=== PATIENT | female | born 1950 | race Caucasian/White ===

== ENCOUNTER 2017-01-11 10:27 | Emergency (ER) | payer MEDICARE, BC ==
[2017-01-11] MEDS ORDERED: Clopidogrel 75 MG Tab PO ONE (10:57)
[2017-01-11] MEDS ORDERED: Aspirin 81 MG Tab.Chew CHEW ONE (10:57)
[2017-01-11] MEDS ORDERED: Famotidine 20 MG/2 ML SDV IVPUSH ONE (10:57)
[2017-01-11] MEDS ORDERED: Sodium Chloride 0.9% 10 ML Syringe FLUSH PRN (10:57)
--- NOTE | 2017-01-11 10:57 | EDM.PDOC ---
ED HISTORY OF PRESENT ILLNESS - General Chief Complaint: Chest Pain Stated Complaint: chest pain Time Seen by Provider: 01/11/17 10:50 Source of Information: Reports: Patient, Family (), Old records ([facility] chart/EMR) History Limitations: Reports: No limitations - History of Present Illness INITIAL COMMENTS - FREE TEXT/NARRATIVE: Patient was brought to the emergency room via private automobile by her for evaluation of nonspecific left-sided chest pressure and dullness, which has occurred on an intermittent basis the last 2 weeks. She rates her discomfort at 3/10 with some radiation into the left shoulder. Her symptoms usually last for about 5-10 minutes. The patient denies any dizziness, orthostasis, orthopnea , diaphoresis, paresthesias, recent decreased exercise tolerance, or any other anginal-type symptoms, although she may have had a brief episode of mild tachycardia about one week ago while she was sitting in the chair. She was not evaluated by any provider at that time with no medications taken for her symptoms this morning other than her regular morning medications. No recent history of abdominal pain, heartburn, nausea, diarrhea, melena, gross hematochezia, or any food intolerance, including fatty foods, etc.. The patient also denies any recent fever, cough, wheezing, dyspnea, etc.. Timing/Duration: Reports: Week(s):, Intermittent Location, General: Reports: chest, upper extremity, left, radiates to: (As above ). Denies: head, face, neck, abdomen, back, pelvis, upper extremity, right, lower extremity, right Quality: Reports: Dull, Pressure, Same as previous episode Improves with: Reports: None Worsens with: Reports: None Context, General: Reports: Other (As above) Associated Symptoms (General): Reports: confusion. Denies: chest pain, cough, diaphoresis, fever/chills, headaches, loss of appetite, malaise, nausea/vomiting , rash, seizure, shortness of breath, syncope, weakness Treatments PROFESSOR OF ART: Reports: Other (see below) (As above) - Related Data Allergies/ADRs: Allergies Allergy/AdvReac Type Severity Reaction Status Date / Time No Known Allergies Allergy Verified 01/11/17 10:32 Home Meds: Home Meds Acebutolol [Sectral] 200 mg PO DAILY 01/11/17 [History] Aspirin 325 mg PO DAILY 01/11/17 [History] Ca Carb & Gluc/Mag Ox & Gluc [Calcium Magnesium Caplet] 1 each PO 2000 01/11/17 [History] Ca Carb & Gluc/Mag Ox & Gluc [Calcium Magnesium Caplet] 2 each PO DAILY [History] Cholecalciferol (Vitamin D3) [Vitamin D3] 1,000 units PO BID 01/11/17 [History] Furosemide 40 mg PO DAILY 01/11/17 [History] Losartan [Cozaar] 50 mg PO DAILY 01/11/17 [History] Omeprazole 20 mg PO DAILY 01/11/17 [History] [place] Oil/[place]-3 Fatty Acids [Sv [place] Oil 1,000 mg Softgel] 2 each PO BID [History] Ubidecarenone [Coenzyme Q10] 100 mg PO BID 01/11/17 [History] amLODIPine [Norvasc] 10 mg PO DAILY 01/11/17 [History] Past Medical History HEENT History: Reports: Impaired vision, Other (see below). Denies: Allergic rhinitis, Glaucoma, Hard of hearing, Macular degeneration, Retinal detachment Other HEENT History: Patient wears glasses Cardiovascular History: Reports: Arrhythmia, Cardiomyopathy, High cholesterol, Hypertension, Syncope, Other (see below). Denies: Aneurysm, Blood clots/VTE/DVT , CAD, Heart Failure, Heart murmur, PR, PVD Other Cardiovascular History: Hyperlipidemia/obesity with secondary fatty liver , first degree AV block, no cardiomegaly by chest x-ray, syncopal episode of unknown cause in the Respiratory History: Reports: COPD, Other (see below). Denies: Intubation, previous, PE, Pneumothorax, Sleep apnea, TB Other Respiratory History: COPD and pulmonary fibrosis by chest x-ray Gastrointestinal History: Reports: Cholelithiasis, Colon polyp, Gastritis, GERD , Hiatal hernia, PUD, Other (see below). Denies: Bowel obstruction, Celiac disease, Chronic constipation, Chronic diarrhea, Fecal incontinence, GI bleed, Hepatitis, Helicobacter pylori, Inflammatory bowel disease, Irritable bowel syndrome, Jaundice, Pancreatitis Other Gastrointestinal History: Moderate gastritis of borderline peptic ulcer by EGD on 03/09/03, history of borderline dysphagia without aspiration, benign hyperplastic colonic polyp at 15 cm by colonoscopy on 12/11/04 Genitourinary History: Reports: Urinary incontinence. Denies: Chronic renal insuffiency, Renal calculus, STD, UTI, recurrent OUTREACH SPECIALIST History: Reports: Spontaneous , Other (see below) : 2 Para: 1 LMP (Approximate): Menopausal Other OB/BYN History: History of irregular menses with current menopause at unknown age, SAB during first trimester requiring D&C as below, fibrocystic breast disease Musculoskeletal History: Reports: Arthritis, Back pain, chronic, Fracture, Neck pain, chronic, Osteoarthritis, Other (see below). Denies: Amputation, Fibromyalgia, Gout, RA, SLE Other Musculoskeletal History: Spinal stenosis at L4-L5 by CT scan, right trimalleolar fracture on 12/20/07 requiring surgery Neurological History: Reports: None. Denies: Cerebral aneurysms, Concussion, CVA, Headaches, chronic, Head trauma, Migraines, MS, Neuropathy, diabetic, Neuropathy, peripheral, Parkinson's, Seizure, TIA Psychiatric History: Reports: Anxiety, Depression. Denies: Abuse, victim of, ADD, ADHD, Addiction, Psych Hospitalization(s), PTSD, Suicide attempt, Suicidal ideation Endocrine/Metabolic History: Reports: Obesity/BMI 30+. Denies: Diabetes, type I , Diabetes, type II, Hypothyroidism, IDDM Hematologic History: Reports: None. Denies: Anemia, Blood transfusion(s), Iron deficiency Immunologic History: Reports: None. Denies: AIDS, HIV, SLE Oncologic (Cancer) History: Reports: Basal cell carcinoma, Other (see below). Denies: Colon, Hodgkin's Lymphoma, Leukemia, Lymphoma, Malignant melanoma, Non- Hodgkin's Lymphoma, Squamous cell carcinoma Other Oncologic History: Left cervical basal cell carcinoma in Dermatologic History: Reports: None. Denies: Eczema, Psoriasis, Venous stasis dermatitis - Infectious Disease History Infectious Disease History: Reports: Chicken pox, Measles, Mumps. Denies: C- difficile, Helicobacter pylori, Meningitis, Mononucleosis, MRSA, Pertussis ( whooping cough), Rheumatic Fever, Rubella, Scarlet fever, Shingles, TB, VRE - Past Surgical History Head Surgeries/Procedures: Reports: None HEENT Surgical History: Reports: Adenoidectomy, Oral surgery, Tonsillectomy, Other (see below). Denies: Cataract surgery, Eye surgery, Laser surgery, LASIK , Myringotomy w tube(s), Naso-sinus surgery Other HEENT Surgeries/Procedures: [place] teeth extraction x4 in the 1970s, tonsillectomy and adenoidectomy at age 10 Cardiovascular Surgical History: Reports: None. Denies: Varicose, Vascular surgery Respiratory Surgical History: Reports: None. Denies: Lung Biopsies, Thoracentesis GI Surgical History: Reports: Cholecystectomy, Colonoscopy, EGD, Other (see below). Denies: Appendectomy, Hernia, abdominal, Hernia, inguinal, Hernia repair/other Other GI Surgeries/Procedures: Laparoscopic cholecystectomy in the , colonoscopy on 02/09/13, 08/05/06, and , EGD on 02/04/06 and 03/09/03 Female Surgical History: Reports: D&C, Other (see below). Denies: Breast biopsy, Tubal ligation Other Female Surgeries/Procedures: D&C secondary to SAB in December 1991 Endocrine Surgical History: Reports: None. Denies: Thyroid biopsy Neurological Surgical History: Reports: None. Denies: C-Spine, Discectomy, Laminectomy, Lumbar spine, Spinal fusion, Vertebroplasty Musculoskeletal Surgical History: Reports: ORIF, Other (see below). Denies: Amputation, Arthroscopic procedure, Carpal tunnel, Ganglion cyst, Shoulder surgery Other Musculoskeletal Surgeries/Procedures:: ORIF of right ankle fracture on 10/15 Oncologic Surgical History: Reports: None Dermatological Surgical History: Reports: None - Past Imaging History Past Imaging History: Reports: Cardiac echo (In about 2004), CAT scan (CT of the head on 12/15/04, CT of the lumbar spine on 06/30/04), Mammogram (Last on ), Stress testing (Chemical Cardiolite stress test of unknown type in about 2004), Ultrasound (Bilateral breast ultrasounds on 01/05/13 and 01/07/12 with left breast ultrasound on 07/14/12, complete abdominal ultrasound on 05/06/11, pelvic ultrasound 12/03/09), Venous doppler (Left leg on 11/16/11) Social & Family History - Family History HEENT: Reports: None. Denies: Glaucoma, Macular degeneration, Retinal detachment Cardiac: Reports: Afib, Arrhythmia, Bypass, CAD, Heart failure, Heart murmur, Heart valve replacement, High cholesterol, Hypertension, PR, Pacemaker, Other ( see below). Denies: Aneurysm, Blood clots/VTE/DVT, PVD/COD, Stent, Syncope Other Cardiac Family History: Brother with hyperlipidemia and a PR at age 50 and subsequent history of atrial fibrillation with required AICD/pacemaker in his early 60s, a paternal uncle with fatal PR and CHF with previous CABG and in his 70s, mother with hypertension and hyperlipidemia with additional history of rheumatic fever requiring valvular replacement x2 Respiratory: Reports: COPD, Other (see below). Denies: PE Other Respiratory Family Hisory: Father with fatal COPD at age 58 with previous use of tobacco GI: Reports: Cholelithiasis, Other (see below). Denies: Celiac disease, Colon polyps, GERD, GI bleed, Inflammatory bowel disease, Irritable bowel syndrome, Pancreatitis, PUD Other GI Family History: Parents and brother with cholecystectomy : Reports: None. Denies: Dialysis, Renal calculus, Renal disease/ insufficiency OBGYN: Reports: None. Denies: Endometriosis, Recurrent spontaneous Musculoskeletal: Reports: Gout, Osteoarthritis, Other (see below). Denies: Fibromyalgia, RA, SLE Other Musculoskeletal Family History: Mother with gout Neurological: Reports: Cerebral aneurysms, CVA, Other (see below). Denies: Alzheimers disease, Dementia, Migraines, MS, Parkinson's, Seizure, TIA Other Neurological Family History: Mother with fatal hemorrhagic CVAs secondary to large cerebral aneurysm at age 76 Psychiatric: Reports: None. Denies: Abuse, victim of, ADD, ADHD, Anxiety, Depression, Psych hospitalization(s), PTSD, Suicide attempt Endocrine/Metabolic: Reports: Diabetes, type II, Other (see below). Denies: Hypothyroidism, Obesity/MBI 30+ Other Endocrine/Metabolic Family History: Brother with AODM Hematologic: Reports: None. Denies: Anemia Immunologic: Reports: None. Denies: AIDS, HIV, SLE Dermatologic: Reports: Eczema, Other (see below). Denies: Psoriasis Other Dermatologic Family History: Maternal grandmother and son with eczema Oncologic: Reports: None. Denies: Breast, Cervix, Colon, Hodgkin's lymphoma, Leukemia, Metastatic, Non-Hodgkin's lymphoma, Skin - Tobacco Use Smoking Status *Q: Never Smoker Smoking Cessation Information Provided To Patient: No Second Hand Smoke Exposure: No Second Hand Smoke Education Provided: No - Caffeine Use Caffeine Use: Reports: None. Denies: Coffee, Energy drinks, Soda, Tea - Alcohol Use Alcohol Use History: Yes Days Per Week of Alcohol Use: 0 (No previous DWIs, problems with alcohol abuse, etc.) Number of Drinks Per Day: 2 (Usually mixed drinks about every 2 months) Total Drinks Per Week: 0 Alcohol Use in Last Twelve Months: Yes Alcohol Use Frequency: Socially - Recreational Drug Use Recreational Drug Use: No Drug Use in Last 12 Months: No Recreational Drug Type: Denies: Amphetamines (Speed), Cocaine, Heroin, Inhalants (Glues, Solvents, Aerosols), LSD (Acid), Marijuana/Hashish, Methamphetamine, Morphine - Living Situation & Occupation Living situation: Reports: (1972, one child) 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 Denies: fever, chills, weakness, fatigue , night sweats, diaphoresis, decreased appetite, weight loss, weight gain HEENT: Reports: Glasses. Denies: Dental pain, Ear discharge, Eye discharge, Hearing loss, Nose pain, Rhinitis, Sinus problem, Throat pain, Vertigo, Vision change Respiratory: Reports: no symptoms. Denies: shortness of breath, wheezing, pleuritic chest pain, cough, hemoptysis Cardiovascular: Reports: Chest pain, Edema (Stable chronic dependent). Denies: Blood pressure problem, Lightheadedness Endocrine: Reports: no symptoms GI/Abdominal: Reports: No symptoms. Denies: Abdominal pain, Anorexia, Black stool, Constipation, Diarrhea, Decreased appetite, Difficulty swallowing, Distension, Flatus, Hematochezia, Nausea, Stool incontinence, Vomiting : Reports: no symptoms. Denies: discharge, dysuria, flank pain, frequency, hematuria, incontinence, pain, urgency, urinary retention Musculoskeletal: Reports: shoulder pain (Occasional as above). Denies: neck pain, arm pain, leg pain Skin: Reports: no symptoms. Denies: cyanosis, diaphoresis, bruising, wound Neurological: Reports: no symptoms. Denies: confusion, dizziness, headache, numbness, paresthesia, syncope, tingling, trouble speaking, difficulty walking, weakness Psychiatric: Reports: No symptoms. Denies: Agitation, Anxiety, Confusion, Depression, Hallucinations, Homicidal ideation, Suicidal ideation Hematologic/Lymphatic: Reports: no symptoms Immunologic: Reports: no symptoms ED EXAM, GENERAL - Physical Exam Exam: See Below Exam Limited By: No limitations General Appearance: alert, WD/WN, no apparent distress, anxious (Mild) Eye Exam: bilateral eye: corneal abrasion, normal inspection (No nystagmus), PERRL Ears: normal external exam, normal canal, hearing grossly normal, normal TMs Nose: normal inspection, normal mucosa, no blood Throat/Mouth: Normal inspection, Normal lips, Normal teeth, Normal gums, Normal oropharynx, Normal voice, No airway compromise. No: Dysphagia, Perioral cyanosis Head: atraumatic, normocephalic. No: facial swelling, facial tenderness, sinus tenderness Neck: normal inspection, supple, non-tender, full range of motion. No: carotid bruit, lymphadenopathy (L), lymphadenopathy (R), thyromegaly Respiratory/Chest: no respiratory distress, lungs clear, normal breath sounds, no accessory muscle use, chest non-tender. No: pleural rub, retractions Cardiovascular: normal peripheral pulses, regular rate, rhythm, no edema, no gallop, no JVD, no murmur, no rub. No: gallop/S3, gallop/S4, friction rub Peripheral Pulses: 2+: dorsalis pedis (L), dorsalis pedis (R), 3+: radial (L), radial (R) GI/Abdominal: normal bowel sounds, soft, non tender, no organomegaly, no distention, no abnormal bruit, no mass, other (obese). No: guarding (Female) Exam: Deferred Rectal (Female) Exam: Deferred Back Exam: normal inspection, full range of motion. No: CVA tenderness (L), CVA tenderness (R), muscle spasm Extremities: normal range of motion, non-tender, normal capillary refill, pedal edema (Bilateral trace to +1 pedal/pretibial edema). No: Miriam's Sign Neurological: alert, oriented, CN II-XII intact, normal cognition, normal gait, normal reflexes (Negative Babinski's), no motor/sensory deficits Psychiatric: anxious (Mild). No: depressed mood Skin Exam: Warm, Dry, Intact, Normal color, No rash. No: Diaphoretic, Ecchymosis, Wound/incision Lymphatic: no adenopathy EKG INTERPRETATION EKG Date: 01/11/17 Time: 10:35 Rhythm: NSR (Sinus bradycardia) Rate (beats/min): 58 [place]: LAD-left axis deviation (New extended left cardiac axis) P-wave: enlarged (Mild to moderate diffuse biphasic P waves) QRS: other (QRS interval of 0.15 seconds representing new borderline complete bifascicular bundle-branch block versus repolarization changes with new left ventricular hypertrophy by voltage) ST-T: normal QT: normal FL/PQ Interval: FL interval of 0.28 seconds representing a progressive first degree AV block with poor R-wave progression anteriorly Comparison: change from previous EKG (As above since 11/15/13) EKG Interpretation Comments: 1. No acute ischemic change 2. Sinus bradycardia 3. Progressive first degree AV block 4. New Complete bifascicular bundle-branch block versus repolarization changes 5. New left ventricular hypertrophy by voltage Course - Vital Signs Last Recorded V/S: Last Vital Signs Temp 36.2 C 01/11/17 10:27 Pulse 60 01/11/17 12:10 Resp 16 01/11/17 12:10 BP 140/62 01/11/17 12:10 Pulse Ox 100 01/11/17 12:10 Vital Signs - 24 hr 01/11/17 01/11/17 01/11/17 10:27 10:40 11:00 Temperature [ 36.2 C Oral] Pulse, 62 58 L 58 L Peripheral [ Left Pulse Oximetry] Respiratory 20 16 15 Rate Blood Pressure 157/61 H 126/50 L 139/64 [Right Lower Arm] O2 Sat by Pulse 100 97 98 Oximetry 01/11/17 01/11/17 01/11/17 11:15 11:30 11:50 Temperature [ Oral] Pulse, 56 L 57 L 56 L Peripheral [ Left Pulse Oximetry] Respiratory 15 16 16 Rate Blood Pressure 152/74 H 132/62 [Right Lower Arm] O2 Sat by Pulse 100 100 100 Oximetry 01/11/17 12:10 Temperature [ Oral] Pulse, 60 Peripheral [ Left Pulse Oximetry] Respiratory 16 Rate Blood Pressure 140/62 [Right Lower Arm] O2 Sat by Pulse 100 Oximetry - Orders/Labs/Meds Orders: Active Orders 24 hr Category Date Time Status Cardiac Monitoring [RC] . DIRECTED Care 01/11/17 10:57 Active EKG Documentation Completion [RC] ASDIRECTED Care 01/11/17 10:57 Active Oxygen Therapy, ED [RC] CONTINUOUS Care 01/11/17 10:57 Active Peripheral IV Care [RC] . DIRECTED Care 01/11/17 10:57 Active Peripheral IV Care [RC] . DIRECTED Care 01/11/17 10:57 Active Pulse Oximetry [RC] CONTINUOUS Care 01/11/17 10:57 Active Up With Assistance [RC] PFP Care 01/11/17 10:57 Active Vital Signs [RC] PFP Care 01/11/17 10:57 Active Chest 1V Frontal [CR] Stat Exams 01/11/17 10:57 Ordered Sodium Chloride 0.9% [Saline Flush] Med 01/11/17 10:57 Active 10 ml FLUSH ASDIRECTED PRN Obtain Past Medical Record [OM.PC] Urgent Oth 01/11/17 10:57 Active Peripheral IV Insertion Adult [OM.PC] Stat Oth 01/11/17 10:57 Ordered Resuscitation Status Stat Resus Stat 01/11/17 10:57 Ordered Labs: Laboratory Tests 01/11/17 01/11/17 01/11/17 Range/Units 11:15 11:15 11:15 WBC 8.9 (4.0-10.2) K/uL RBC 5.00 (3.77-5.09) M/uL Hgb 15.4 (11.7-15.5) g/dL Hct 45.2 (34.0-46.0) % MCV 90.4 D (84.0-98.0) fL MCH 30.8 (28.2-33.3) pg MCHC 34.1 (31.7-36.0) g/dL RDW 13.9 (11.2-14.1) % Plt Count 254 D (150-350) K/uL Neut % (Auto) 63.7 (45.0-80.0) % Lymph % (Auto) 23.1 (10.0-50.0) % Petroleum % (Auto) 10.8 (2.0-14.0) % Eos % (Auto) 1.6 (0.0-5.0) % Baso % (Auto) 0.8 (0.0-2.0) % Neut # 5.64 (1.40-7.00) K/uL Lymph # 2.05 (0.50-3.50) K/uL Petroleum # 0.96 (0.00-1.00) K/uL Eos # 0.14 (0.00-0.50) K/uL Baso # 0.07 (0.00-0.20) K/uL PT 11.4 (9.8-11.7) SEC INR 1.1 APTT 30.5 H (23.5-30.0) SEC D-Dimer, Quantitative 179 (0-400) ng/mL Sodium (136-145) mmol/L Potassium (3.5-5.1) mmol/L Chloride (98-107) mmol/L Carbon Dioxide (21.0-32.0) mmol/L BUN (7-18) mg/dL Creatinine (0.51-1.17) mg/dL Est Cr Clr Drug Dosing mL/min Estimated GFR (MDRD) mL/min Glucose (74-106) mg/dL Hemoglobin A1c (4.3-5.7) % Lactic Acid (0.4-2.0) mmol/L Uric Acid (2.6-7.2) mg/dL Calcium (8.5-10.1) mg/dL Magnesium (1.8-2.4) mg/dL Total Bilirubin (0.2-1.0) mg/dL AST (15-37) U/L ALT (12-78) U/L Alkaline Phosphatase (46-116) IU/L Creatine Kinase (26-308) U/L Creatine Kinase Index (0.0-2.5) % CK-MB (CK-2) (0.00-3.60) ng/mL Troponin I (0.000-0.056) ng/mL [id number] Pept (0-125) pg/mL Total Protein (6.4-8.2) g/dL Albumin (3.4-5.0) g/dL Triglycerides (30-150) mg/dL Cholesterol (100-200) mg/dL LDL Cholesterol, Calc (0-100) mg/dL HDL Cholesterol (40-60) mg/dL TSH, Ultra Sensitive (0.358-3.740) mIU/mL H. pylori IgG Antibody (NEGATIVE) 01/11/17 01/11/17 01/11/17 Range/Units 11:15 11:15 11:15 WBC (4.0-10.2) K/uL RBC (3.77-5.09) M/uL Hgb (11.7-15.5) g/dL Hct (34.0-46.0) % MCV (84.0-98.0) fL MCH (28.2-33.3) pg MCHC (31.7-36.0) g/dL RDW (11.2-14.1) % Plt Count (150-350) K/uL Neut % (Auto) (45.0-80.0) % Lymph % (Auto) (10.0-50.0) % Petroleum % (Auto) (2.0-14.0) % Eos % (Auto) (0.0-5.0) % Baso % (Auto) (0.0-2.0) % Neut # (1.40-7.00) K/uL Lymph # (0.50-3.50) K/uL Petroleum # (0.00-1.00) K/uL Eos # (0.00-0.50) K/uL Baso # (0.00-0.20) K/uL PT (9.8-11.7) SEC INR APTT (23.5-30.0) SEC D-Dimer, Quantitative (0-400) ng/mL Sodium 141 (136-145) mmol/L Potassium 3.9 (3.5-5.1) mmol/L Chloride 104 (98-107) mmol/L Carbon Dioxide 27.7 (21.0-32.0) mmol/L BUN 22 H (7-18) mg/dL Creatinine 0.94 (0.51-1.17) mg/dL Est Cr Clr Drug Dosing 57.78 mL/min Estimated GFR (MDRD) 59 mL/min Glucose 110 H (74-106) mg/dL Hemoglobin A1c (4.3-5.7) % Lactic Acid 1.1 (0.4-2.0) mmol/L Uric Acid 7.9 H (2.6-7.2) mg/dL Calcium 8.7 (8.5-10.1) mg/dL Magnesium 2.0 (1.8-2.4) mg/dL Total Bilirubin 0.6 (0.2-1.0) mg/dL AST 29 (15-37) U/L ALT 43 (12-78) U/L Alkaline Phosphatase 56 (46-116) IU/L Creatine Kinase 205 (26-308) U/L Creatine Kinase Index 1.6 (0.0-2.5) % CK-MB (CK-2) 3.30 (0.00-3.60) ng/mL Troponin I 0.000 (0.000-0.056) ng/mL [id number] Pept 158 H (0-125) pg/mL Total Protein 7.8 (6.4-8.2) g/dL Albumin 3.4 (3.4-5.0) g/dL Triglycerides (30-150) mg/dL Cholesterol (100-200) mg/dL LDL Cholesterol, Calc (0-100) mg/dL HDL Cholesterol (40-60) mg/dL TSH, Ultra Sensitive 1.415 (0.358-3.740) mIU/mL H. pylori IgG Antibody Negative (NEGATIVE) 01/11/17 01/11/17 Range/Units 11:15 11:15 WBC (4.0-10.2) K/uL RBC (3.77-5.09) M/uL Hgb (11.7-15.5) g/dL Hct (34.0-46.0) % MCV (84.0-98.0) fL MCH (28.2-33.3) pg MCHC (31.7-36.0) g/dL RDW (11.2-14.1) % Plt Count (150-350) K/uL Neut % (Auto) (45.0-80.0) % Lymph % (Auto) (10.0-50.0) % Petroleum % (Auto) (2.0-14.0) % Eos % (Auto) (0.0-5.0) % Baso % (Auto) (0.0-2.0) % Neut # (1.40-7.00) K/uL Lymph # (0.50-3.50) K/uL Pet[place] # (0.00-1.00) K/uL Eos # (0.00-0.50) K/uL Baso # (0.00-0.20) K/uL PT (9.8-11.7) SEC INR APTT (23.5-30.0) SEC D-Dimer, Quantitative (0-400) ng/mL Sodium (136-145) mmol/L Potassium (3.5-5.1) mmol/L Chloride (98-107) mmol/L Carbon Dioxide (21.0-32.0) mmol/L BUN (7-18) mg/dL Creatinine (0.51-1.17) mg/dL Est Cr Clr Drug Dosing mL/min Estimated GFR (MDRD) mL/min Glucose (74-106) mg/dL Hemoglobin A1c 5.8 H (4.3-5.7) % Lactic Acid (0.4-2.0) mmol/L Uric Acid (2.6-7.2) mg/dL Calcium (8.5-10.1) mg/dL Magnesium (1.8-2.4) mg/dL Total Bilirubin (0.2-1.0) mg/dL AST (15-37) U/L ALT (12-78) U/L Alkaline Phosphatase (46-116) IU/L Creatine Kinase (26-308) U/L Creatine Kinase Index (0.0-2.5) % CK-MB (CK-2) (0.00-3.60) ng/mL Troponin I (0.000-0.056) ng/mL [id number]-[id number]-Glknrytdghm Pept (0-125) pg/mL Total Protein (6.4-8.2) g/dL Albumin (3.4-5.0) g/dL Triglycerides 111 (30-150) mg/dL Cholesterol 259 H (100-200) mg/dL LDL Cholesterol, Calc 174 H (0-100) mg/dL HDL Cholesterol 63 H (40-60) mg/dL TSH, Ultra Sensitive (0.358-3.740) mIU/mL H. pylori IgG Antibody (NEGATIVE) Meds: Medications Discontinued Medications Generic Name Dose Route Start Last Admin Trade Name Freq PRN Reason Stop Dose Admin Aspirin 324 mg 01/11/17 10:57 01/11/17 11:23 Aspirin CHEW 01/11/17 10:58 324 mg ONETIME ONE Administration Clopidogrel Bisulfate 300 mg 01/11/17 10:57 01/11/17 11:23 Plavix PO 01/11/17 10:58 300 mg ONETIME ONE Administration Famotidine 40 mg 01/11/17 10:57 01/11/17 11:23 Pepcid IVPUSH 01/11/17 10:58 40 mg ONETIME ONE Administration Sodium Chloride 10 ml 01/11/17 10:57 01/11/17 11:24 Saline Flush FLUSH 10 ml ASDIRECTED PRN Administration Keep Vein Open - Radiology Interpretation Free Text/Narrative:: engine monitor mild cardiomegaly with rate in the high 50s and low 60s with no ectopy or arrhythmia Chest x-ray, portable, shows evidence of moderate cardiomegaly and COPD with probable pulmonary hypertension and/or mild centralized CHF. Additional mild pulmonary fibrosis with no pneumothorax, pulmonary infiltrates, etc. Departure - Departure Time of Disposition: 12:30 Disposition: Home, Self-Care 01 Condition: good Clinical Impression: Chest pain, Hyperuricemia, Hyperlipidemia, Peptic reflux disease, Osteoarthritis, Mixed anxiety depressive disorder, COPD (chronic obstructive pulmonary disease), Obesities, morbid, First degree AV block Instructions: Nonspecific Chest Pain, [id number], Gout, [id number] Referrals: Paula Pandya MD [Primary Care Provider] - Forms: ED Department Discharge Additional Instructions: 1. Followup in this facility on 01/21/17 for recommended dobutamine Cardiolite stress test with Dr. Pandya. This facility will contact you later for specific instructions and time 2. Maintain a 50% maximum exercise restriction as discussed until you are released by your regular provider 3. May take extra [id number] antacids as needed, if symptoms recur 4. Weight loss in moderation are advisable with strict low-fat, low-cholesterol , hyperuricemia diet 5. Followup with [facility] in about one week after the above stress test with discussion of today's lipid panel, diabetes screen/glycosylated hemoglobin, etc. at that time - Problem List & Annotations (1) Chest pain SNOMED Code(s): 01847286 Code(s): R07.9 - CHEST PAIN, UNSPECIFIED Status: Acute Priority: High Current Visit: Yes Onset Date: ~01/11/17 Annotation/Comment:: Various therapeutic options were discussed with the patient and her . Note complete resolution of patient's symptoms after medical therapy as above, including IV Pepcid. They've elected not to be admitted to observation status for standard rule out PR orders, which is reasonable secondary to two week duration of her symptoms with overall negative EKG and cardiac enzymes and d- dimer. Only mild elevation of BNP with no direct clinical evidence of significant CHF. Note current Lasix therapy. Exercise restrictions were discussed with dobutamine Cardiolite stress test on an outpatient basis with her regular provider, Paula Pandya MD at [facility] in [place], as per discharge instructions. Consider echocardiogram depending on her clinical course. Note newly diagnosed borderline complete bifascicular bundle-branch block and mild progression of her previous first degree AV block. Cardiology consultation as needed Qualifiers: Chest pain type: other chest pain Qualified Code(s): R07.89 - Other chest pain; R07.8 - Other chest pain (2) Peptic reflux disease SNOMED Code(s): 22427733 Code(s): K21.9 - GASTRO-ESOPHAGEAL REFLUX DISEASE WITHOUT ESOPHAGITIS Status: Chronic Priority: Medium Current Visit: Yes Annotation/Comment:: Possible GERD component to her symptoms. Continue previous omeprazole therapy. High-dose IV Pepcid given in the emergency room as above. As needed OTC antacids for now with further GI workup depending on her clinical course. H. pylori negative today. (3) First degree AV block SNOMED Code(s): 079619100 Code(s): I44.0 - ATRIOVENTRICULAR BLOCK, FIRST DEGREE Status: Chronic Priority: Medium Current Visit: Yes Annotation/Comment:: Progressive first degree AV block as above. Continue to observe closely by her regular provider with cardiac workup as above (4) COPD (chronic obstructive pulmonary disease) SNOMED Code(s): 93270562 Code(s): J44.9 - CHRONIC OBSTRUCTIVE PULMONARY DISEASE, UNSPECIFIED Status : Chronic Priority: Medium Current Visit: Yes Annotation/Comment:: COPD by chest x-ray. Consider PFTs once her cardiac status has been determined. No previous tobacco use history. No current medical therapy at this time Qualifiers: COPD type: emphysema Emphysema type: panlobular Qualified Code(s): J43.1 - Panlobular emphysema (5) Hyperlipidemia SNOMED Code(s): 28192144 Code(s): E78.5 - HYPERLIPIDEMIA, UNSPECIFIED Status: Chronic Priority: Medium Current Visit: Yes Annotation/Comment:: Patient has not had anything to eat since about 19:30 hours yesterday evening. Lipid panel today shows persistent moderate LDL elevation with no current medical therapy. Consider statin therapy secondary to patient's multiple cardiac risk factors. Strict Low fat, low cholesterol diet recommended as below. Qualifiers: Hyperlipidemia type: pure hypercholesterolemia Qualified Code(s): E78.00 - Pure hypercholesterolemia, unspecified; E78.0 - Pure hypercholesterolemia (6) Hyperuricemia SNOMED Code(s): 88795146 Code(s): E79.0 - HYPERURICEMIA W/O SIGNS OF INFLAM ARTHRIT AND TOPHACEOUS DIS Status: Acute Priority: Medium Current Visit: Yes Onset Date: Annotation/Comment:: Newly diagnosed hyperuricemic today with no previous history of gout. Information provided at discharge, including dietary recommendations, etc. discussed in the emergency room (7) Mixed anxiety depressive disorder SNOMED Code(s): 750491880 Code(s): F41.8 - OTHER SPECIFIED ANXIETY DISORDERS Status: Chronic Priority: Medium Current Visit: Yes Annotation/Comment:: Stable by history (8) Osteoarthritis SNOMED Code(s): 467222471 Code(s): M19.90 - UNSPECIFIED OSTEOARTHRITIS, UNSPECIFIED SITE Status: Chronic Priority: Medium Current Visit: Yes Annotation/Comment:: Stable by history Qualifiers: Osteoarthritis location: multiple joints Osteoarthritis type: primary Qualified Code(s): M15.0 - Primary generalized (osteo)arthritis (9) Obesities, morbid SNOMED Code(s): 182625614, 88006226446531 Code(s): E66.01 - MORBID (SEVERE) OBESITY DUE TO EXCESS CALORIES Status: Chronic Priority: Medium Current Visit: Yes Annotation/Comment:: Weight loss in moderation advisable. Borderline mild fasting hyperglycemia today with overall only mildly elevated glycosylated hemoglobin Qualifiers: Obesity type: due to excess calories Qualified Code(s): E66.01 - Morbid ( severe) obesity due to excess calories - Problem List Review Problem List Initiated/Reviewed/Updated: Yes - My Orders Last 24 Hours: My Active Orders 01/11/17 10:57 Cardiac Monitoring [RC] . DIRECTED EKG Documentation Completion [RC] ASDIRECTED Oxygen Therapy, ED [RC] CONTINUOUS Peripheral IV Care [RC] . DIRECTED Peripheral IV Care [RC] . DIRECTED Pulse Oximetry [RC] CONTINUOUS Up With Assistance [RC] PFP Vital Signs [RC] PFP Chest 1V Frontal [CR] Stat Sodium Chloride 0.9% [Saline Flush] 10 ml FLUSH ASDIRECTED PRN Obtain Past Medical Record [OM.PC] Urgent Peripheral IV Insertion Adult [OM.PC] Stat Resuscitation Status Stat - Assessment/Plan Last 24 Hours: My Active Orders 01/11/17 10:57 Cardiac Monitoring [RC] . DIRECTED EKG Documentation Completion [RC] ASDIRECTED Oxygen Therapy, ED [RC] CONTINUOUS Peripheral IV Care [RC] . DIRECTED Peripheral IV Care [RC] . DIRECTED Pulse Oximetry [RC] CONTINUOUS Up With Assistance [RC] PFP Vital Signs [RC] PFP Chest 1V Frontal [CR] Stat Sodium Chloride 0.9% [Saline Flush] 10 ml FLUSH ASDIRECTED PRN Obtain Past Medical Record [OM.PC] Urgent Peripheral IV Insertion Adult [OM.PC] Stat Resuscitation Status Stat Assessment:: As above Plan: As above. Extensive precautions were given to the patient and her , who are in agreement with the treatment plan. See Patient Instructions for further treatment and plan.
[2017-01-11 12:19] VITALS: BP 140/62
== END 2017-01-11 12:30 | disposition home or self-care (01) ==
LOC: LL.ED 10:27 → SUPCPDRO 10:27 → LL.ED 12:30
DX: I44.0 Atrioventricular block, first degree (principal); K21.9 Gastro-esophageal reflux disease without esophagitis; J44.9 Chronic obstructive pulmonary disease, unspecified; E78.5 Hyperlipidemia, unspecified; E79.0 Hyperuricemia without signs of inflammatory arthritis and tophaceous disease; F41.8 Other specified anxiety disorders; M19.90 Unspecified osteoarthritis, unspecified site; E66.01 Morbid (severe) obesity due to excess calories; Z79.82 Long term (current) use of aspirin; Z79.899 Other long term (current) drug therapy
CPT/HCPCS: 36415; 71010; 80053; 80061; 82550; 82553; 83036; 83605; 83735; 83880; 84443; 84484; 84550; 85025; 85379; 85610; 85730; 86318; 93005; 96374; 99283; 99285; A9270; J7050; S0028

== ENCOUNTER 2019-11-23 07:47 | Day surgery (SDC) | payer MEDICARE, BC ==
[~2019-11-23 07:47] MED LIST: Lactated Ringers 1,000 ML IV SCH; Sodium Chloride 0.9% 10 ML Syringe FLUSH PRN
[2019-11-23] MEDS ORDERED: Midazolam 1 MG/ML 2 ML SDV ONE ×2 (08:17→10:10)
[2019-11-23] MEDS ORDERED: Propofol 200 MG/20 ML SDV ONE ×2 (08:17→10:10)
--- NOTE | 2019-11-23 09:58 | PCM.PN ---
- General Info Date of Service: 11/23/19 - Review of Systems Systems Review Comment:: 69 y/o female here for colonoscopy. She has a history of colon polyps. It has been about 7 years since her last colonoscopy. I have discussed the proposed colonoscopy with the patient. Risks such as but not limited to bleeding and GI injury discussed. She agrees to proceed. Her recent h and p is reviewed and no significant changes are noted. - Patient Data Vitals - Most Recent: Last Vital Signs Temp 97.8 F 11/23/19 09:27 Pulse 60 11/23/19 09:27 Resp 18 11/23/19 09:27 BP 106/51 L 11/23/19 09:27 Pulse Ox 96 11/23/19 09:27 Weight - Most Recent: 151.953 kg Med Orders - Current: Current Medications Lactated Ringer's (Ringers, Lactated) 1,000 mls @ 125 mls/hr IV ASDIRECTED ELIAS Sodium Chloride (Saline Flush) 10 ml FLUSH ASDIRECTED PRN PRN Reason: Keep Vein Open Discontinued Medications Midazolam HCl (Versed 1 Mg/Ml) Confirm Administered Dose 2 mg .ROUTE .STK-MED ONE Stop: 11/23/19 08:18 Propofol (Diprivan 20 Ml) Confirm Administered Dose 400 mg .ROUTE .STK-MED ONE Stop: 11/23/19 08:18 Sepsis Event Note - Focused Exam Vital Signs: Vital Signs Temp Pulse Resp BP Pulse Ox 11/23/19 09:27 97.8 F 60 18 106/51 L 96 Date Exam was Performed: 11/23/19 Time Exam was Performed: 09:55 - Problem List Review Problem List Initiated/Reviewed/Updated: Yes - Assessment Assessment:: History of colon polyps - Plan Plan:: Colonoscopy
--- NOTE | 2019-11-23 10:46 | PCM.OPNOTE ---
- General Post-Op/Procedure Note Date of Surgery/Procedure: 11/23/19 Operative Procedure(s): Colonoscopy Findings: Moderate sized hemorrhoids Pre Op Diagnosis: History of colon polyps Post-Op Diagnosis: Hemorrhoids Anesthesia Technique: MAC Primary Surgeon: Jesus Manuel Yost Pathology: none Output, Urine Amount: 0 EBL in mLs: 0 Complications: None Condition: Good
--- NOTE | 2019-11-23 11:11 | OR ---
Date of Procedure: 11/23/2019 PREOPERATIVE DIAGNOSIS: History of colon polyps. POSTOPERATIVE DIAGNOSIS: Hemorrhoids. OPERATIONS PERFORMED: Colonoscopy. INDICATIONS FOR SURGERY: This 69-year-old female has a known history of colon polyps and comes today for surveillance colonoscopy. FINDINGS: No polyps were seen on today's exam. The patient has moderate-sized internal and external hemorrhoids, but the colon mucosa appears normal. The terminal ileum also appears normal. DESCRIPTION OF PROCEDURE: The patient was taken to the operating room. She was given intravenous sedation, and with her in the left lateral decubitus position, a digital rectal exam was performed showing no rectal masses. The Olympus colonoscope was inserted into the rectum. Retroflexed examination of the rectal canal was performed. The scope was then carefully advanced under direct visualization through the entire length of the colon until the cecum was reached. Cecal acquisition was confirmed by noting the normal internal cecal anatomy including the appendiceal orifice and ileocecal valve. The ileocecal valve was cannulated and the terminal ileum was examined and appeared normal. The scope was then slowly withdrawn sequentially re-examining the colonic segments until the entire colon and rectum had been fully examined. The scope was removed and the patient was taken from the operating room in satisfactory condition. ESTIMATED BLOOD LOSS: 0. COMPLICATIONS: None. PROGNOSIS: Good. MAY Yost MD /[id number]
[2019-11-23 12:17] VITALS: BP 125/74; PULSE 61
== END 2019-11-23 11:45 | disposition home or self-care (01) ==
LOC: LL.SDS 07:47
PROVIDERS: ATTEND Surgery
DX: Z12.11 Encounter for screening for malignant neoplasm of colon (principal); K64.8 Other hemorrhoids; K64.4 Residual hemorrhoidal skin tags; I48.0 Paroxysmal atrial fibrillation; G47.33 Obstructive sleep apnea (adult) (pediatric); E66.01 Morbid (severe) obesity due to excess calories; Z68.43 Body mass index [BMI] 50.0-59.9, adult; Z86.010 Personal history of colon polyps; Z99.89 Dependence on other enabling machines and devices; Z79.01 Long term (current) use of anticoagulants; Z79.899 Other long term (current) drug therapy
CPT/HCPCS: 00812; J2250; J2704; J7120

== ENCOUNTER 2025-03-01 08:40 | Day surgery (SDC) | payer MEDICARE ==
[~2025-03-01 08:40] MED LIST changes: -Lactated Ringers 1,000 ML IV SCH; +Propofol 200 MG/20 ML SDV ONE
[2025-03-01] MEDS: Lactated Ringers 1,000 ML IV SCH (08:57)
[2025-03-01 10:57] VITALS: BP 123/57; PULSE 70
== END 2025-03-01 11:25 | disposition home or self-care (01) ==
LOC: LL.SDS 08:40
PROVIDERS: ATTEND Surgery
DX: Z12.11 Encounter for screening for malignant neoplasm of colon (principal); Z86.0100 Personal history of colon polyps, unspecified; I10 Essential (primary) hypertension; I48.0 Paroxysmal atrial fibrillation; E11.51 Type 2 diabetes mellitus with diabetic peripheral angiopathy without gangrene; E78.5 Hyperlipidemia, unspecified; E66.01 Morbid (severe) obesity due to excess calories; Z68.43 Body mass index [BMI] 50.0-59.9, adult; Z79.84 Long term (current) use of oral hypoglycemic drugs; Z79.85 Long-term (current) use of injectable non-insulin antidiabetic drugs; Z79.01 Long term (current) use of anticoagulants; Z79.899 Other long term (current) drug therapy
CPT/HCPCS: 00811; 99100; J2704; J7120